=== PATIENT | male | born 2000 | race Caucasian/White ===

== ENCOUNTER 2021-09-12 07:32 | Outpatient (CLI) | payer OTHER ==
[2021-09-12] MEDS ORDERED: Gadobenate Dimeglumine 529 MG/1 ML (5 ML VIAL) ONE (09:05)
[2021-09-12] MEDS ORDERED: Iopamidol 300 61% 100 ML VIAL FS ONE (09:05)
[2021-09-12] MEDS ORDERED: Lidocaine 1% MPF 2 ML VIAL ONE (09:05)
[2021-09-12] MEDS ORDERED: EPINEPHrine 1 MG/ML AMP ONE (09:05)
== END 2021-09-12 07:33 | disposition home or self-care (01) ==
LOC: RAD 07:32
PROVIDERS: ATTEND Orthopaedic Surgery
DX: M25.511 Pain in right shoulder (principal); S43.401A Unspecified sprain of right shoulder joint, initial encounter
CPT/HCPCS: 23350; A9577; J0171; Q9967